=== PATIENT | female | born 1950 | race Caucasian/White ===

== ENCOUNTER 2020-10-16 21:30 | Emergency (ER) | payer MEDICARE ==
[~2020-10-16] VITALS: Ht 157.5 cm; Wt 74.5 kg
--- NOTE | 2020-10-16 21:52 | PHYS DOC ---
General Adult EDM: Chief Complaint: LACERATION/AVULSION HPI: HPI: Patient is a 69-year-old female presents to the ER today for a laceration to her left fourth and fifth fingers after cutting it on a 1 5. Patient denies any decreased range of motion or decreased sensation in the hand. Patient reports that her tetanus is not up-to-date. (DORA ADAMS APRN) Review of Systems: Review of Systems: 14 body systems of the review of systems have been reviewed. See HPI for pertinent positive and negative responses, otherwise all other systems are negative, nonpertinent or noncontributory (DORA ADAMS APRN) Current Medications: Current Meds: Current Medications Medications (Trade) Dose Ordered Sig/Lizzy Start Time Stop Time Status Last Admin Dose Admin Lidocaine HCl 20 ml 1X ONCE 10/16/20 22:00 10/16/20 22:01 UNV (DORA ADAMS APRN) Physical Exam: PE: Constitutional: Well developed, well nourished, no acute distress, non-toxic appearance. [] HENT: Normocephalic, atraumatic Eyes: PERRL, conjunctiva normal, no discharge. [] Neck: Normal range of motion, no stridor Cardiovascular: Normal peripheral perfusion Lungs & Thorax: Normal work of breathing, no tachypnea Skin: Warm, dry, no erythema, no rash, concern for 5 cm superficial laceration noted to the dorsal aspect left fourth finger, 1 cm laceration noted to the dorsal aspect of the left fifth finger bleeding controlled, neuro intact, range of motion intact, no foreign bodies, no tendon involvement. [] Back: Normal range of motion Extremities: No tenderness, no cyanosis, no clubbing, ROM intact, no edema. [] Neurologic: Alert and oriented X 3, normal motor function, normal sensory function, no focal deficits noted. [] Psychologic: Affect normal, judgement normal, mood normal. [] (DORA ADAMS APRN) EKG: EKG: [] (DORA ADAMS APRN) Radiology/Procedures: Radiology/Procedures: [] (DORA ADAMS APRN) Heart Score: C/O Chest Pain: No Risk Factors: Risk Factors: DM, Current or recent (<one month) smoker, HTN, HLP, family history of CAD, obesity. Risk Scores: Score 0 - 3: 2.5% MACE over next 6 weeks - Discharge Home Score 4 - 6: 20.3% MACE over next 6 weeks - Admit for Clinical Observation Score 7 - 10: 72.7% MACE over next 6 weeks - Early Invasive Strategies (DORA ADAMS APRN) Course & Med Decision Making: Course & Med Decision Making Pertinent Labs and Imaging studies reviewed. (See chart for details) [] Patient is a 69-year-old female being seen for a laceration to her left fourth and fifth finger. There is no foreign bodies and no tendon involvement. Patient has good range of motion of her fingers and is neurovascularly intact. Laceration was repaired with 3 sutures patient tolerated procedure. Neurovascularly intact post lack repair. Tetanus was updated. Dressing after lack repair. Patient given patient regarding care suture removal. I discussed with patient all findings as well as the need to follow-up with PCP for further evaluation and treatment or return to the ER if any new or worsening symptoms. Strict return precautions were also discussed at length. Patient voiced understanding and agreement with the plan. Patient is hemodynamically stable at the time of disposition. (DORA ADAMS APRN) Dragon Disclaimer: Dragon Disclaimer: This electronic medical record was generated, in whole or in part, using a voice recognition dictation system. (DORA ADAMS APRN) Attending Co-Sign The patient was seen and interviewed as well as examined at the bedside. The chart was reviewed. The case was discussed. Agree with the plan of care. (STEVO ADAMS DO) Departure Departure: Impression: Primary Impression: Laceration Disposition: 01 HOME / SELF CARE / HOMELESS Condition: GOOD Referrals: MAGGIE ARIAS DO (PCP) Patient Instructions: Laceration Care, Adult Additional Instructions: You are seen in the ER today for a laceration to your left fourth and fifth fingers. This was repaired in the ER. You had sutures placed. Please follow- up with your primary care provider or you can return to have the sutures removed in 7 to 10 days. You can apply Polysporin/bacitracin at home and keep a dressing in place. Do not submerge your hand in any water for 48 hours. You can wash your hands with warm water and mild soap. Please monitor for signs of infection like redness, warmth, swelling, drainage. If you develop any signs of infection, increased pain, decreased mobility of finger, decreased sensation please return to the ER immediately. EMERGENCY DEPARTMENT GENERAL DISCHARGE INSTRUCTIONS Thank you for coming to [facility] (ED) today and trusting us with you care. We trust that you had a positivie experience in our Emergency Department. If you wish to speak to the department management, you may call the director at [phone]. YOUR FOLLOW UP INSTRUCTIONS ARE FOLLOWS: 1. Do you have a private Doctor? If you do not have a private doctor, please ask for a resource list of physicians or clinics that may be able to assist you with follow up care. 2. The Emergency Physician has interpreted your x-rays. The X-Ray specialist will also review them. If there is a change in the findings, you will be notified in 48 hours when at all possible. 3. A lab test or culture has been done, your results will be reviewed and you will be notified if you need a change in treatment. ADDITIONAL INSTRUCTIONS AND INFORMATION: 1. Your care today has been supervised by a physician who is specially trained in emergency care. Many problems require more than one evaluation for a complete diagnosis and treatment. We recommend that you schedule your follow up appointment as recommended to ensure complete treatment of you illness or injury. If you are unable to obtain follow up care and continue to have a problem, or if your condition worsens, we recommend that you return to the ED. 2. We are not able to safely determine your condition over the phone nor are we able to give sound medical advice over the phone. For these safety reasons, if you call for medical advice we will ask you to come to the ED for further evaluation. 3. If you have any questions regarding these discharge instructions please call the ED at [phone]. SAFETY INFORMATION: In the interest of safety, wellness, and injury prevention; we encourage you to wear your sealbelt, if you smoke; quite smoking, and we encourage family to use a p rotective helmet for bicycling and other sporting events that present an increased risk for head injury. IF YOUR SYMPTOMS WORSEN OR NEW SYMPTOMS DEVELOP, OR YOU HAVE CONCERNS ABOUT YOUR CONDITION; OR IF YOUR CONDITION WORSENS WHILE YOU ARE WAITING FOR YOUR FOLLOW UP APPOINTMENT; EITHER CONTACT YOUR PRIMARY CARE DOCTOR, THE PHYSICIAN WHOSE NAME AND NUMBER YOU WERE GIVEN, OR RETURN TO THE ED IMMEDIATELY. Laceration Repair Lac Repair Time: 2204 Confirmed: Patient, procedure, site, and site correct Consent: Patient has given verbal consent Laceration location: Left fifth finger Shape: Linear Depth: Superficial Details: Clean with no foreign material Neurovascular, tendon exam: Intact Anesthesia: 1% lidocaine 1.5 mils administered Preparation: Sterile field established Irrigation: Wound irrigated with sterile saline and chlorhexidine Skin closure: Simple interrupted sutures placed Size of suture: 5-0 Ethilon Number of sutures: 3 Complexity: Single layer Post procedure exam: Circulation, motor, sensory exam intact, bleeding controlled. Complications: None Patient tolerated: Well Performed by: self Total time: 15 minutes (DORA ADAMS APRN) DORA ADAMS APRN Oct 16, 2020 21:52 STEOV ADAMS DO Oct 18, 2020 05:35
[2020-10-16 22:30] VITALS: BP 126/72
[2020-10-16] MEDS ORDERED: LIDOCAINE 1% Multi-Dose 20 ML VIAL. IJ ONE (22:30)
[2020-10-16] MEDS ORDERED: DIPH,PERTUSS(ACELL),TET VAC/PF 0.5 ML SYRINGE. VAX IM ONE (22:30)
== END 2020-10-16 22:36 | disposition home or self-care (01) ==
LOC: ER 21:30
DX: S61.215A Laceration without foreign body of left ring finger without damage to nail, initial encounter (principal); S61.217A Laceration without foreign body of left little finger without damage to nail, initial encounter; W26.8XXA Contact with other sharp object(s), not elsewhere classified, initial encounter; Y93.89 Activity, other specified; Y92.89 Other specified places as the place of occurrence of the external cause; Y99.8 Other external cause status
CPT/HCPCS: 12002; 90471; 90715; 99283-25

== ENCOUNTER → 2020-11-02 | Outpatient (CLI) | payer MEDICARE ==
[2020-10-16 22:30] VITALS: BP 126/72
--- NOTE | 2020-11-03 10:10 | RAD ---
EXAM: 3 Views Bilateral Shoulder DATE: 11/02/2020 2:55 PM INDICATION: Reason: BILATERAL SHOULDER PAIN / Spl. Instructions: / History: COMPARISON: No Prior FINDINGS: Right: There is no evidence for acute fracture or dislocation. AC joint is congruent. Moderate AC joint DJD. Humeral head is not high riding. Left: There is no evidence for acute fracture or dislocation. AC joint is congruent. Os Acromiale. Mild AC joint DJD. Humeral head is not high riding. IMPRESSION: 1. No acute fracture or dislocation. 2. Left Os Acromiale. 3. 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 Electronically signed by: Shawn Fuentes MD (11/03/2020 10:08 AM) [id number]
== END ==
LOC: RAD 14:32
PROVIDERS: ATTEND Physician Assistant
DX: M19.012 Primary osteoarthritis, left shoulder (principal); M19.011 Primary osteoarthritis, right shoulder; M89.212 Other disorders of bone development and growth, left shoulder
CPT/HCPCS: 73030